=== PATIENT | female | born 1995 | race Caucasian/White ===

== ENCOUNTER 2018-09-15 02:14 | Emergency (ER) | payer MEDICAID ==
[~2018-09-15] VITALS: Wt 75.2 kg
[2018-09-15] MEDS ORDERED: SOD CHLORIDE 0.9% 500 ML IV STA (03:57)
[2018-09-15] MEDS ORDERED: KETOROLAC 30 MG INJ IV STA (03:57)
--- NOTE | 2018-09-15 04:03 | ERD ---
ER Documentation Chief Complaint Chief Complaint AP, VOMITING, CHILLS X'S 4 DAYS HPI During the patient's encounter translation services were utilized Language: Samoan Source: Family 23-year-old female who presents to the emergency room with epigastric abdominal discomfort, chills for approximately 4 days. Patient describes associated nausea, no vomiting. Pain is mild, cramping and nonradiating. No diarrhea or constipation. No pain to the right upper quadrant. No dysuria urgency or frequency or flank pain. ROS All systems reviewed and are negative except as per history of present illness. Medications Home Meds Active Scripts Ondansetron (Ondansetron Odt) 4 Mg Tab.rapdis, 4 MG PO Q6H PRN for NAUSEA AND/OR VOMITING, #10 TAB Prov:ARLET ESTEBAN MD 09/15/18 Dicyclomine HCl (Dicyclomine HCl) 10 Mg Capsule, 10 MG PO TID PRN for ABDOMINAL CRAMPING, #20 CAP Prov:ARLET ESTEBAN MD 09/15/18 Allergies Allergies: Coded Allergies: No Known Allergy (Unverified , 09/15/18) PMhx/Soc Medical and Surgical Hx: pt denies Medical Hx, pt denies Surgical Hx Hx Alcohol Use: No Hx Substance Use: No Hx Tobacco Use: No Smoking Status: Never smoker FmHx Family History: No diabetes Physical Exam Vitals Vital Signs Date Temp Pulse Resp B/P (MAP) Pulse Ox O2 O2 Flow FiO2 Time Delivery Rate 09/15/18 97.8 87 20 136/89 100 02:19 (105) Physical Exam General: Well developed, well nourished, no acute distress Head: Normocephalic, atraumatic. Eyes: Pupils equally reactive, EOM intact ENT: Moist mucous membranes Neck: Supple, no lymphadenopathy Respiratory: Lungs clear bilaterally, no distress Cardiovascular: RRR, no murmurs, rubs, or gallops Abdominal: Soft, non-tender, negative Silverio sign, no tenderness to McBurney's point non-distended, no peritoneal signs : Deferred MSK: No edema, no unilateral swelling, 5/5 strength Neurologic: Alert and oriented, moving all extremities, normal speech, no focal weakness, no cerebellar signs Skin: No rash Psych: Normal mood Result Diagram: 09/15/1840809/15/18408 Results 24 hrs Laboratory Tests Test 09/15/18 04:09 09/15/18 04:10 09/15/18 04:12 White Blood Count 12.0 10^3/ul Red Blood Count 4.43 10^6/ul Hemoglobin 13.2 g/dl Hematocrit 39.6 % Mean Corpuscular Volume 89.4 fl Mean Corpuscular Hemoglobin 29.8 pg Mean Corpuscular 33.3 g/dl Hemoglobin Concent Red Cell Distribution Width 12.1 % Platelet Count 248 10^3/UL Mean Platelet Volume 11.4 fl Immature Granulocytes % 0.300 % Neutrophils % 70.0 % Lymphocytes % 22.3 % Monocytes % 6.3 % Eosinophils % 0.7 % Basophils % 0.4 % Nucleated Red Blood Cells % 0.0 /100WBC Immature Granulocytes # 0.030 10^3/ul Neutrophils # 8.4 10^3/ul Lymphocytes # 2.7 10^3/ul Monocytes # 0.8 10^3/ul Eosinophils # 0.1 10^3/ul Basophils # 0.1 10^3/ul Nucleated Red Blood Cells # 0.0 10^3/ul Sodium Level 144 mmol/L Potassium Level 4.4 mmol/L Chloride Level 105 mmol/L Carbon Dioxide Level 28 mmol/L Anion Gap 11 Blood Urea Nitrogen 7 mg/dl Creatinine 0.67 mg/dl Est Glomerular Filtrat > 60 mL/min Rate mL/min Glucose Level 102 mg/dl Calcium Level 10.0 mg/dl Total Bilirubin 0.3 mg/dl Direct Bilirubin 0.00 mg/dl Indirect Bilirubin 0.3 mg/dl Aspartate Amino Transf (AST/SGOT) 37 IU/L Alanine 51 IU/L Aminotransferase (ALT/SGPT) Alkaline Phosphatase 116 IU/L Total Protein 8.3 g/dl Albumin 4.6 g/dl Globulin 3.70 g/dl Albumin/Globulin Ratio 1.24 Lipase 70 U/L POC Beta HCG, Qualitative NEGATIVE Urine Color YELLOW Urine Clarity SLIGHTLY CLOUDY Urine pH 7.0 Urine Specific [place] 1.016 Urine Ketones TRACE mg/dL Urine Nitrite NEGATIVE mg/dL Urine Bilirubin NEGATIVE mg/dL Urine Urobilinogen NEGATIVE mg/dL Urine Leukocyte Esterase NEGATIVE Luciano/ul Urine Microscopic RBC 1 /HPF Urine Microscopic WBC 3 /HPF Urine Squamous Epithelial Cells FEW /HPF Urine Mucus FEW /HPF Urine Hemoglobin NEGATIVE mg/dL Urine Glucose NEGATIVE mg/dL Urine Total Protein NEGATIVE mg/dl Current Medications Medications Dose Sig/Liam Start Time Status Last (Trade) Ordered Route PRN Stop Time Admin Dose Reason Admin Sodium 500 ml @ Q1H STAT 09/15/18 09/15/18 Chloride 500 mls/hr IV 03:57 09/15/18 04:20 04:56 Ketorolac 30 mg ONCE STAT 09/15/18 DC 09/15/18 Tromethamine IV 03:57 09/15/18 04:20 (Toradol) 03:58 Procedures/MDM LAB INTERPRETATION: I reviewed the laboratory testing and it shows no evidence of acute process MEDICAL DECISION MAKING: Patient presents with very nonspecific subjective fevers, epigastric abdominal discomfort with a benign abdominal exam and normal vital signs here in the emergency room setting. Consider possible viral process, gastritis. Low concern for acute cholecystitis, acute appendicitis or acute intra-abdominal process. Laboratory testing including would be reasonable. Symptom control be appropriate. No indication for CT imaging or ultrasound imaging of the abdomen pelvis at this time. ER COURSE: * Laboratory testing is otherwise unremarkable. The patient is resting comfortably. Likely viral process. No indication for advanced imaging. Return precautions were discussed and understood. CONSULTATION: None DISPOSITION PLAN: The patient does not have an identifiable emergent medical condition that warrants inpatient hospitalization at this time. The patient is deemed safe for discharge with outpatient follow-up. We discussed follow up with the patient's primary care doctor within 24 to 48 hours as needed. We also discussed return to the emergency room for worsening symptoms or worsening condition. Outpatient referral: None required Discharge Medications: Hersonyl, Zojavad Departure Diagnosis: Primary Impression: Abdominal pain Abdominal location: epigastric Qualified Codes: R10.13 - Epigastric pain Condition: Stable ARLET ESTEBAN MD September 15, 2018 04:03
[2018-09-15] MEDS ORDERED: ONDA4TAB14 PO (04:42)
[2018-09-15] MEDS ORDERED: DICY10CA40 PO (04:42)
[2018-09-15 05:00] VITALS: BP 107/76; PULSE 68; RESP 16
== END 2018-09-15 05:09 | disposition home or self-care (01) ==
LOC: E/R 02:14
DX: R10.13 Epigastric pain (principal); R11.2 Nausea with vomiting, unspecified
CPT/HCPCS: 36415; 80053; 81001; 81025; 83690; 85025; 96374; J1885; J7040; Z7502; 81003